=== PATIENT | female | born 1970 | race African-American/Black ===

== ENCOUNTER 2020-02-10 09:15 | Outpatient (REF) | payer OTHER, SELFPAY ==
[2020-02-10 11:41] LABS: Hematocrit 43.4 % (37-47); Hemoglobin 13.4 g/dl (12.0-16.0); Mean Corpuscular HGB Conc 30.9 g/dl (31.0-35.0); Mean Corpuscular Hemoglobin 28.5 pg (27.0-33.0); Mean Corpuscular Volume 92.1 fL (80-98); Mean Platelet Volume 10.9 fL (9.4-12.3); Platelet Count 319 X10*3/uL (160-400); Red Blood Count 4.71 X10*6/uL (4.20-5.50); Red Cell Distribution Width 14.7 % (11.0-16.0); White Blood Count 9.9 X10*3/uL (4.8-10.8)
[2020-02-10 12:00] LABS: Alanine Aminotransferase 15 U/L (0-31); Albumin Level 4.6 g/dL (3.5-5.0); Alkaline Phosphatase 80 U/L (39-117); Anion Gap 13 (12-20); Aspartate Amino Transferase 17 U/L (5-31); Bilirubin Total 0.5 mg/dL (0.0-1.0); Blood Urea Nitrogen 19 mg/dL (9-16); Calcium 9.5 mg/dL (8.4-10.2); Carbon Dioxide 30 mmol/L (22-29); Chloride 101 mmol/L (96-108); Cholesterol 191 mg/dL; Estimated Glomerular Filt Rate > 60; Glucose Fasting 83 mg/dL (60-99); HDL Cholesterol 69 mg/dL; Iron 53 mcg/dL (30-160); LDL Cholesterol Calculated 108 mg/dl; Percent Iron Saturation 14 % (15-50); Potassium 4.3 mmol/l (3.3-5.1); Sodium 140 mmol/L (135-145); Total Iron Binding Capacity 390 mcg/dL (228-428); Total Protein 8.4 g/dL (6.5-8.0); Triglycerides 71 mg/dL; Unsaturated Iron Binding 337 ug/dL
[2020-02-10 13:23] LABS: Folate 16.4 ng/mL (> or = 4.0); Vitamin B12 > 2000 pg/mL (200-900)
[2020-02-10 16:54] LABS: Appearance Urine CLEAR; Color Urine YELLOW; Glucose Urine UA NEG (NEG); Leukocyte Esterase Urine NEG (NEG); Nitrite Urine NEG (NEG); Specific Gravity - Urine 1.025 (1.005-1.025); Urine Blood NEG (NEG); Urine Ketones NEG (NEG); Urine Protein NEG (NEG-TRACE)
[2020-02-10 17:01] LABS: RBC Urine 0-2 /HPF (0); Squamous Epithelial Cell Urine TRACE /LPF; WBC Urine 0-2 /HPF (0-4)
== END 2020-02-10 09:16 | disposition home or self-care (01) ==
LOC: HO.HMGCLDS 09:15
PROVIDERS: PCP Internal Medicine; Visit Provider Internal Medicine
DX: J45.909 Unspecified asthma, uncomplicated (principal); Z00.00 Encounter for general adult medical examination without abnormal findings; E05.00 Thyrotoxicosis with diffuse goiter without thyrotoxic crisis or storm; E89.0 Postprocedural hypothyroidism; E55.9 Vitamin D deficiency, unspecified
CPT/HCPCS: 36415; 80053; 80061; 81001; 82607; 82746; 83540; 84443; 85027

== ENCOUNTER 2020-02-11 10:30 | Outpatient (REF) | payer OTHER, SELFPAY ==
[2020-02-11 15:03] LABS: Free T4 (Free Thyroxine) 1.12 ng/dL (0.71-1.85); Thyroid Stimulating Hormone 2.16 uIU/mL (0.32-4.0); Vitamin D 25-OH Total 37.2 ng/mL (>30)
[2020-02-13 07:13] LABS: Follicle Stimulating Hormone 70.7 mIU/mL; Lutenizing Hormone 38.5 mIU/mL
[2020-02-15 18:48] LABS: Estradiol Ultra Sensitive 5 pg/mL
[2020-02-19 22:28] LABS: Estradiol Free 0.11 pg/mL; Estradiol, Ultrasensitive 6 pg/mL
== END 2020-02-11 10:31 | disposition home or self-care (01) ==
LOC: HO.10HDL 10:30
PROVIDERS: Visit Provider Internal Medicine
DX: E89.0 Postprocedural hypothyroidism (principal); E05.00 Thyrotoxicosis with diffuse goiter without thyrotoxic crisis or storm; E55.9 Vitamin D deficiency, unspecified; E23.2 Diabetes insipidus
CPT/HCPCS: 82306; 82670; 83001; 83002; 84439; 84443

== ENCOUNTER 2020-06-29 11:16 | Outpatient (REF) | payer OTHER, SELFPAY ==
[2020-06-29 14:55] LABS: Free T4 (Free Thyroxine) 1.07 ng/dL (0.71-1.85); Thyroid Stimulating Hormone 1.92 uIU/mL (0.32-4.0)
[2020-06-30 06:07] LABS: Triiodothyronine T3 Total 81 ng/dL (76-181)
[2020-07-04 19:26] LABS: Thyrotropin Receptor Antibody 14.06 IU/L (<=2.00)
[2020-07-07 15:41] LABS: Thyroid Stimulating Immunoglob 297 % baseline (<140)
== END 2020-06-29 11:17 | disposition home or self-care (01) ==
LOC: HO.10HDL 11:16
PROVIDERS: Visit Provider Internal Medicine
DX: E89.0 Postprocedural hypothyroidism (principal)
CPT/HCPCS: 36415; 83520; 84439; 84443; 84445; 84480

== ENCOUNTER → 2020-08-06 11:41 | Outpatient (BNVA) | payer OTHER, SELFPAY | PROVIDERS: PCP Internal Medicine; Visit Provider Internal Medicine ==

== ENCOUNTER 2020-08-13 08:03 | Outpatient (REF) | payer OTHER, SELFPAY ==
[2020-08-13 12:08] LABS: Hematocrit 41.3 % (37-47); Mean Corpuscular HGB Conc 31.5 g/dl (31.0-35.0); Mean Corpuscular Hemoglobin 28.2 pg (27.0-33.0); Mean Corpuscular Volume 89.6 fL (80-98); Mean Platelet Volume 10.7 fL (9.4-12.3); Platelet Count 318 X10*3/uL (160-400); Red Blood Count 4.61 X10*6/uL (4.20-5.50); Red Cell Distribution Width 13.9 % (11.0-16.0); White Blood Count 8.2 X10*3/uL (4.8-10.8)
[2020-08-13 12:31] LABS: Free T4 (Free Thyroxine) 1.08 ng/dL (0.71-1.85)
[2020-08-13 12:38] LABS: Thyroid Stimulating Hormone 1.34 uIU/mL (0.32-4.0); Vitamin D 25-OH Total 41.3 ng/mL (>30)
[2020-08-13 12:47] LABS: Alanine Aminotransferase 19 U/L (0-31); Albumin Level 4.3 g/dL (3.5-5.0); Alkaline Phosphatase 88 U/L (39-117); Anion Gap 12 (12-20); Aspartate Amino Transferase 19 U/L (5-31); Bilirubin Total 0.5 mg/dL (0.0-1.0); Blood Urea Nitrogen 15 mg/dL (9-16); Calcium 9.1 mg/dL (8.4-10.2); Carbon Dioxide 27 mmol/L (22-29); Chloride 105 mmol/L (96-108); Estimated Glomerular Filt Rate > 60; Glucose Fasting 88 mg/dL (60-99); Iron 58 mcg/dL (30-160); Percent Iron Saturation 17 % (15-50); Potassium 4.3 mmol/L (3.3-5.1); Sodium 140 mmol/L (135-145); Total Iron Binding Capacity 340 mcg/dL (228-428); Total Protein 7.9 g/dL (6.5-8.0); Unsaturated Iron Binding 282 ug/dL
[2020-08-14 05:56] LABS: Triiodothyronine T3 Total 87 ng/dL (76-181)
== END 2020-08-13 08:04 | disposition home or self-care (01) ==
LOC: HO.HMGCLDS 08:03
PROVIDERS: PCP Internal Medicine; Visit Provider Internal Medicine
DX: E55.9 Vitamin D deficiency, unspecified (principal); R53.83 Other fatigue; E89.0 Postprocedural hypothyroidism; E05.00 Thyrotoxicosis with diffuse goiter without thyrotoxic crisis or storm
CPT/HCPCS: 36415; 80053; 82306; 83540; 84439; 84443; 84480; 85027

== ENCOUNTER 2021-01-21 08:12 | Outpatient (REF) | payer OTHER, SELFPAY ==
[2021-01-21 11:18] LABS: Hematocrit 40.4 % (37.0-47.0); Hemoglobin 12.8 g/dl (12.0-16.0); Mean Corpuscular HGB Conc 31.7 g/dl (31.0-35.0); Mean Corpuscular Hemoglobin 28.4 pg (27.0-33.0); Mean Corpuscular Volume 89.8 fL (80.0-98.0); Platelet Count 296 X10*3/uL (160-400); Red Cell Distribution Width 14.5 % (11.0-16.0)
[2021-01-21 11:45] LABS: Alanine Aminotransferase 19 U/L (0-31); Albumin Level 4.3 g/dL (3.5-5.0); Alkaline Phosphatase 86 U/L (39-117); Anion Gap 9 (12-20); Aspartate Amino Transferase 22 U/L (5-31); Bilirubin Total 0.5 mg/dL (0.0-1.0); Blood Urea Nitrogen 14 mg/dL (9-16); Calcium 9.3 mg/dL (8.4-10.2); Carbon Dioxide 28 mmol/L (22-29); Chloride 107 mmol/L (96-108); Cholesterol 153 mg/dL; Estimated Glomerular Filt Rate > 60; Glucose Fasting 91 mg/dL (60-99); HDL Cholesterol 50 mg/dL; Iron 63 mcg/dL (30-160); LDL Cholesterol Calculated 90 mg/dl; Percent Iron Saturation 19 % (15-50); Potassium 4.1 mmol/L (3.3-5.1); Sodium 140 mmol/L (135-145); Total Iron Binding Capacity 324 mcg/dL (228-428); Total Protein 7.8 g/dL (6.5-8.0); Triglycerides 65 mg/dL; Unsaturated Iron Binding 261 ug/dL
[2021-01-21 11:58] LABS: TSH reflex Free T4 1.54 uIU/mL (0.32-4.0); Vitamin D 25-OH Total 49.4 ng/mL (>30)
[2021-01-21 11:59] LABS: Free T4 (Free Thyroxine) 1.21 ng/dL (0.71-1.85); Thyroid Stimulating Hormone 1.48 uIU/mL (0.32-4.0)
[2021-01-21 13:50] LABS: Appearance Urine CLEAR; Color Urine YELLOW; Glucose Urine UA NEG (NEG); Leukocyte Esterase Urine TRACE (NEG); Nitrite Urine NEG (NEG); Specific Gravity - Urine 1.025 (1.005-1.025); Urine Blood NEG (NEG); Urine Ketones NEG (NEG); Urine Protein NEG (NEG-TRACE)
[2021-01-21 13:59] LABS: Mucus Urine TRACE /LPF; RBC Urine 0 /HPF (0); Squamous Epithelial Cell Urine 1+ /LPF
== END 2021-01-21 08:13 | disposition home or self-care (01) ==
LOC: HO.HMGCLDS 08:12
PROVIDERS: Internal Medicine; PCP Internal Medicine; Visit Provider Internal Medicine
DX: Z00.00 Encounter for general adult medical examination without abnormal findings (principal); J45.909 Unspecified asthma, uncomplicated; E05.00 Thyrotoxicosis with diffuse goiter without thyrotoxic crisis or storm; E89.0 Postprocedural hypothyroidism
CPT/HCPCS: 36415; 80053; 80061; 81001; 82306; 83540; 84439; 84443; 85027

== ENCOUNTER → 2021-02-10 10:04 | Outpatient (BNVA) | payer OTHER, SELFPAY | PROVIDERS: PCP Internal Medicine; Visit Provider Internal Medicine ==

== ENCOUNTER 2021-10-05 08:13 | Outpatient (REF) | payer OTHER, SELFPAY ==
[2021-10-05 11:35] LABS: MANUAL DIFF FLAG NO
[2021-10-05 11:44] LABS: Basophils Absolute Auto 0.1 X10*3/uL (0.0-0.2); Basophils Percent Auto 0.6 % (0-2); Eosinophils Absolute Auto 0.1 X10*3/uL (0.0-0.4); Eosinophils Percent Auto 1.6 % (0-4); Hemoglobin 12.8 g/dl (12.0-16.0); Imm Gran Abs Auto 0.02 X10*3/uL (0.00-0.03); Imm Gran Pct Auto 0.2 % (0.0-0.4); Lymphocytes Absolute Auto 2.3 X10*3/uL (1.2-4.9); Lymphocytes Percent Auto 26.2 % (20-40); Mean Corpuscular Hemoglobin 28.3 pg (27.0-33.0); Mean Corpuscular Volume 88.5 fL (80.0-98.0); Mean Platelet Volume 10.7 fL (9.4-12.3); Monocytes Absolute Auto 0.6 X10*3/uL (0.1-1.2); Monocytes Percent Auto 6.5 % (2-11); Neutrophils Absolute Auto 5.7 x10*3/uL (2.0-8.3); Neutrophils Percent Auto 64.9 % (45-73); Platelet Count 282 X10*3/uL (160-400); Red Blood Count 4.52 X10*6/uL (4.20-5.50); White Blood Count 8.8 X10*3/uL (4.8-10.8)
[2021-10-05 12:15] LABS: TSH reflex Free T4 2.89 uIU/mL (0.32-4.0)
[2021-10-05 12:18] LABS: Alanine Aminotransferase 20 U/L (0-31); Albumin Level 4.4 g/dL (3.5-5.0); Alkaline Phosphatase 89 U/L (39-117); Anion Gap 10 (12-20); Aspartate Amino Transferase 20 U/L (5-31); Bilirubin Total 0.3 mg/dL (0.0-1.0); Blood Urea Nitrogen 13 mg/dL (9-16); Calcium 9.4 mg/dL (8.4-10.2); Carbon Dioxide 27 mmol/L (22-29); Chloride 109 mmol/L (96-108); Estimated Glomerular Filt Rate > 60; Glucose Fasting 104 mg/dL (60-99); Potassium 4.1 mmol/L (3.3-5.1); Sodium 142 mmol/L (135-145)
== END 2021-10-05 08:14 | disposition home or self-care (01) ==
LOC: HO.HMGCLDS 08:13
PROVIDERS: Visit Provider Internal Medicine
DX: E03.9 Hypothyroidism, unspecified (principal); Z78.0 Asymptomatic menopausal state
CPT/HCPCS: 36415; 80053; 84443; 85025

== ENCOUNTER 2021-10-06 09:34 | Outpatient (REF) | payer OTHER, SELFPAY ==
[2021-10-06 12:06] LABS: Appearance Urine CLOUDY; Color Urine YELLOW; Glucose Urine UA NEG (NEG); Leukocyte Esterase Urine 3+ (NEG); Nitrite Urine NEG (NEG); PH 6.5 (5.0-8.0); Specific Gravity - Urine 1.025 (1.005-1.025); Urine Blood NEG (NEG); Urine Ketones NEG (NEG); Urine Protein NEG (NEG-TRACE)
[2021-10-06 12:17] LABS: RBC Urine 0 /HPF (0)
[2021-10-06 12:18] LABS: Renal Epithelial Cells Urine 1+ /LPF; Squamous Epithelial Cell Urine TRACE /LPF
[2021-10-06 12:19] LABS: Amorphous Sediment Urine 3+ /LPF
== END 2021-10-06 09:35 | disposition home or self-care (01) ==
LOC: HO.HMGCLNP 09:34
PROVIDERS: Visit Provider Internal Medicine
DX: E03.9 Hypothyroidism, unspecified (principal); Z78.0 Asymptomatic menopausal state
CPT/HCPCS: 81001

== ENCOUNTER 2021-10-13 09:20 | Outpatient (REF) | payer OTHER, SELFPAY ==
[2021-10-13 11:28] LABS: Appearance Urine CLEAR; Color Urine YELLOW; Glucose Urine UA NEG (NEG); Leukocyte Esterase Urine 1+ (NEG); Nitrite Urine NEG (NEG); PH 6.5 (5.0-8.0); Specific Gravity - Urine 1.015 (1.005-1.025); UACC Culture Trigger YES; Urine Blood NEG (NEG); Urine Ketones NEG (NEG); Urine Protein NEG (NEG-TRACE)
[2021-10-13 11:42] LABS: Bacteria Urine TRACE /LPF; RBC Urine 0-2 /HPF (0)
== END 2021-10-13 09:21 | disposition home or self-care (01) ==
LOC: HO.HMGCLDS 09:20
PROVIDERS: PCP Internal Medicine; Visit Provider Internal Medicine
DX: Z00.00 Encounter for general adult medical examination without abnormal findings (principal); E03.9 Hypothyroidism, unspecified; J45.909 Unspecified asthma, uncomplicated; R82.90 Unspecified abnormal findings in urine
CPT/HCPCS: 81001; 87086

== ENCOUNTER 2022-01-26 08:03 | Outpatient (REF) | payer OTHER, SELFPAY ==
[2022-01-26 11:18] LABS: MANUAL DIFF FLAG NO
[2022-01-26 11:36] LABS: Basophils Percent Auto 0.5 % (0-2); Eosinophils Absolute Auto 0.2 X10*3/uL (0.0-0.4); Eosinophils Percent Auto 1.8 % (0-4); Hematocrit 41.1 % (37.0-47.0); Hemoglobin 12.9 g/dl (12.0-16.0); Imm Gran Abs Auto 0.01 X10*3/uL (0.00-0.03); Imm Gran Pct Auto 0.1 % (0.0-0.4); Lymphocytes Absolute Auto 2.6 X10*3/uL (1.2-4.9); Lymphocytes Percent Auto 30.1 % (20-40); Mean Corpuscular HGB Conc 31.4 g/dl (31.0-35.0); Mean Corpuscular Hemoglobin 27.6 pg (27.0-33.0); Mean Platelet Volume 10.8 fL (9.4-12.3); Monocytes Absolute Auto 0.5 X10*3/uL (0.1-1.2); Monocytes Percent Auto 5.9 % (2-11); Neutrophils Absolute Auto 5.3 x10*3/uL (2.0-8.3); Neutrophils Percent Auto 61.6 % (45-73); Platelet Count 315 X10*3/uL (160-400); Red Blood Count 4.67 X10*6/uL (4.20-5.50); Red Cell Distribution Width 14.2 % (11.0-16.0); White Blood Count 8.5 X10*3/uL (4.8-10.8)
[2022-01-26 12:26] LABS: Alanine Aminotransferase 19 U/L (0-31); Albumin Level 4.3 g/dL (3.5-5.0); Alkaline Phosphatase 91 U/L (39-117); Anion Gap 12 (12-20); Aspartate Amino Transferase 20 U/L (5-31); Bilirubin Total 0.4 mg/dL (0.0-1.0); Blood Urea Nitrogen 16 mg/dL (9-16); Calcium 9.6 mg/dL (8.4-10.2); Carbon Dioxide 26 mmol/L (22-29); Chloride 109 mmol/L (96-108); Cholesterol 156 mg/dL; Estimated Glomerular Filt Rate > 60; Glucose Fasting 87 mg/dL (60-99); HDL Cholesterol 50 mg/dL; LDL Cholesterol Calculated 91 mg/dl; Potassium 4.3 mmol/L (3.3-5.1); Sodium 143 mmol/L (135-145); TSH reflex Free T4 3.06 uIU/mL (0.32-4.0); Total Protein 7.9 g/dL (6.5-8.0); Triglycerides 78 mg/dL; Vitamin D 25-OH Total 52.8 ng/mL (>30)
[2022-01-26 12:27] LABS: Free T4 (Free Thyroxine) 1.12 ng/dL (0.71-1.85); Thyroid Stimulating Hormone 3.07 uIU/mL (0.32-4.0); Vitamin D 25-OH Total 54.2 ng/mL (>30)
== END 2022-01-26 08:04 | disposition home or self-care (01) ==
LOC: HO.HMGCLDS 08:03
PROVIDERS: Absent Provider Internal Medicine; PCP Internal Medicine; Visit Provider Internal Medicine
DX: Z00.00 Encounter for general adult medical examination without abnormal findings (principal); E03.9 Hypothyroidism, unspecified; E05.00 Thyrotoxicosis with diffuse goiter without thyrotoxic crisis or storm; E55.9 Vitamin D deficiency, unspecified
CPT/HCPCS: 36415; 80053; 80061; 82306; 84439; 84443; 85025

== ENCOUNTER 2022-10-19 09:02 | Outpatient (AMB) | payer OTHER, SELFPAY ==
--- NOTE | 2022-10-19 09:02 | MHC.OFFVIS ---
Intake Intake Visit Reasons: F/U Postablative hypothyroidism Intake Note: Postablative Hypothyroidism follow up visit. Compliance Field Technician Required: No Allergies tiotropium [Spiriva with HandiHaler] Allergy (Unknown, Verified 10/19/22 11:42) conjuctivits seasonal allergies Allergy (Unknown, Uncoded 10/19/22 11:42) Unknown Medication List - Last Reconciled 10/19/22 by Mirna Valdez, albuterol sulfate 90 mcg/actuation 1 puff inhalation DAILY PRN cetirizine (Zyrtec) 10 mg PO DAILY PRN cholecalciferol (vitamin D3) 50 mcg PO DAILY 30 days fluticasone furoate-vilanterol 100-25 mcg/dose 1 inh inhalation DAILY levothyroxine 137 mcg PO QAM multivitamin with iron PO DAILY rhubarb root extract (Estroven Complete Menopause Relief) mg PO HPI HPI Comments History of Present Illness Details 50 YO F with no significant PMHx who is seen in F/U for Hyperthyroidism. Patient had routine lab work drawn by PCP in August 2018 which revealed suppressed TSH. She subsequently had repeat labs 11/25/18 which revealed TSH < 0.01 with FT4 1.94 and FT3 9.1. She was then referred to Endocrinology. We repeated labs 12/06/18 which revealed suppressed TSH of <0.01 with FT4 WNL but TT3 elevated to 325. TSI and TRAB antibodies were positive. She had a thyroid uptake and scan which revealed diffusely increased uptake of 55.8%. Thyroid US revealed no nodules. She refused treatment with thionamine therapy and instead opted for I131 ablation. She received treatment with 11.75 I131 02/15/2019. She did develop hypothyroidism shortly after treatment and was started on Levothyroxine 50 mcg PO daily but developed hypothyroidism with TSH >30. Her dose has been steadily increased to her current dose of 137 mcg PO daily and TSH is now WNL. She reports feeling well and denies any symptoms of hypothyroidism. Thyroid Uptake and Scan: 12/06/18 FINDINGS: The uptake is 19.8% at 4 hours and 55.8% at 24 hours. The radioiodine uptake is moderately elevated. The radiopertechnetate thyroid scintigram demonstrates the thyroid gland to be normal in size, shape, and position. There is homogeneous distribution of activity within the the gland with no focal abnormalities noted. A very faint pyramidal lobe is visualized attaching to the junction of the mid left lobe and isthmus. The trapping function is markedly increased with little background or salivary gland activity visible. A single anterior radioiodine image obtained at the time of the 24-hour uptake measurement is similar to the radio pertechnetate image. IMPRESSION: Normal-sized thyroid gland with very homogeneous activity and markedly increased trapping function. No nodules are visualized. The radioiodine uptake is moderately elevated. In the clinical setting of hyperthyroidism, these findings are consistent with Graves' disease. Thyroid US: 11/29/18 FINDINGS: SIZE: Measurements of the thyroid lobes and nodules are given in sagittal, anteroposterior and transverse dimensions respectively. Right Thyroid Lobe: 3.2 x 2.1 x 1.5 cm, volume 5.3 mL. Parenchyma: The gland echotexture is heterogeneous. Thyroid vascularity is increased. Left Thyroid Lobe: 4.0 x 1.6 x 1.8 cm, volume 6.1 mL. Parenchyma: The gland echotexture is heterogeneous. Thyroid vascularity is increased. Isthmus: 0.4 cm in maximum AP dimension. RIGHT THYROID LOBE: No nodules. ISTHMUS: No nodules. LEFT THYROID LOBE: No nodules. NODES: No lymphadenopathy is seen in the tissue surrounding the thyroid gland. Labs: Laboratory Tests 01/21/21 01/21/21 08:21 08:21 25-OH Vitamin D To jose 49.4 TSH 1.48 Free T4 1.21 PFSH Medical History Annual physical exam Asthma Fatigue Graves disease Graves' eye disease Hypothyroidism Normal Pap smear Postablative hypothyroidism Vitamin D deficiency Surgical History H/O colonoscopy H/O wisdom tooth extraction History of eyelid surgery Family History Father Liver cancer Mother Dementia Social History Housing: House Alcohol intake: current Alcohol intake frequency: a few times a month Patient Tobacco Use Status: Never used Tobacco e-Cigarette/Vaping Use: Never Used Current occupational status: employed Cognitive needs: No Hearing needs: No Vision needs: Yes Assessment & Plan Assessment & Plan (1) Graves disease: Code(s): E05.00 - Thyrotoxicosis with diffuse goiter without thyrotoxic crisis or storm Plan: Patient with a history of Grave's disease who underwent I131 ablation with 11.75 millicurries of I131 02/16/2020 who has developed postablative hypothyroidism. She is now well controlled on Levothyroxine 137 mcg PO daily. Will repeat TSH in now and I will call with abnormalities. She will then F/U with her PCP for further management. All of her questions were answered. She is in agreement with this plan of care. I spent 20 minutes in reviewing the record, seeing the patient and documenting in the medical record, including 5 minutes on the phone with the Patient. (2) Postablative hypothyroidism: Code(s): E89.0 - Postprocedural hypothyroidism Plan: Patient with postablative hypothyroidism after I131 ablation for Grave's disease. TSH is at goal on Levothyroxine 137 mcg PO daily. Will repeat labs now and reassess. (3) Vitamin D deficiency: Code(s): E55.9 - Vitamin D deficiency, unspecified Plan: Remains on Vitamin D 2000 IU daily. Orders: Orders Free T4 (Free Thyroxine) Today E03.9 - Hypothyroidism, unspecified Thyroid Stimulating Hormone Today E03.9 - Hypothyroidism, unspecified Telehealth Telehealth Location of provider rendering services: practice address Location of patient: address on file Patient Identification confirmed using: Name, : Yes Telehealth method: voice only Patient verbally consented to treatment: Yes Patient verbally consented to billing insurance company: Yes Patient informed of any privacy concerns related to visit: Yes Coding Level of Care Code Tele Est Pt Level 3 (66264) Diagnoses Graves disease E05.00 Postablative hypothyroidism E89.0 Vitamin D deficiency E55.9
== END 2022-10-19 14:38 | disposition home or self-care (01) ==
LOC: HO.ENCR 09:02
PROVIDERS: PCP Internal Medicine; Visit Provider Internal Medicine
DX: E05.00 Thyrotoxicosis with diffuse goiter without thyrotoxic crisis or storm (principal); E89.0 Postprocedural hypothyroidism; E55.9 Vitamin D deficiency, unspecified
CPT/HCPCS: 99213

== ENCOUNTER → 2022-10-19 09:02 | Outpatient (BNVA) | payer OTHER, SELFPAY | PROVIDERS: PCP Internal Medicine; Visit Provider Internal Medicine ==

== ENCOUNTER 2022-10-20 09:56 | Outpatient (REF) | payer OTHER, SELFPAY ==
[2022-10-20 13:38] LABS: Free T4 (Free Thyroxine) 1.14 ng/dL (0.71-1.85); Thyroid Stimulating Hormone 1.01 uIU/mL (0.32-4.0)
== END 2022-10-20 09:57 | disposition home or self-care (01) ==
LOC: HO.HMGCLDS 09:56
PROVIDERS: PCP Internal Medicine; Visit Provider Internal Medicine
DX: E03.9 Hypothyroidism, unspecified (principal)
CPT/HCPCS: 36415; 84439; 84443

== ENCOUNTER 2023-01-30 08:11 | Outpatient (REF) | payer OTHER, SELFPAY ==
[2023-01-30 11:31] LABS: MANUAL DIFF FLAG NO
[2023-01-30 11:39] LABS: Basophils Absolute Auto 0.1 X10*3/uL (0.0-0.2); Basophils Percent Auto 1.1 % (0-2); Eosinophils Absolute Auto 0.1 X10*3/uL (0.0-0.4); Eosinophils Percent Auto 0.8 % (0-4); Hematocrit 42.6 % (37.0-47.0); Hemoglobin 13.2 g/dl (12.0-16.0); Imm Gran Abs Auto 0.01 X10*3/uL (0.00-0.03); Imm Gran Pct Auto 0.1 % (0.0-0.4); Lymphocytes Percent Auto 35.9 % (20-40); Mean Corpuscular Hemoglobin 27.7 pg (27.0-33.0); Mean Corpuscular Volume 89.5 fL (80.0-98.0); Mean Platelet Volume 10.9 fL (9.4-12.3); Monocytes Absolute Auto 0.5 X10*3/uL (0.1-1.2); Monocytes Percent Auto 6.4 % (2-11); Neutrophils Absolute Auto 4.6 x10*3/uL (2.0-8.3); Neutrophils Percent Auto 55.7 % (45-73); Platelet Count 309 X10*3/uL (160-400); Red Blood Count 4.76 X10*6/uL (4.20-5.50); Red Cell Distribution Width 14.6 % (11.0-16.0); White Blood Count 8.3 X10*3/uL (4.8-10.8)
[2023-01-30 13:00] LABS: Alanine Aminotransferase 26 U/L (0-31); Albumin Level 4.3 g/dL (3.5-5.0); Alkaline Phosphatase 89 U/L (39-117); Anion Gap 13 (12-20); Aspartate Amino Transferase 26 U/L (5-31); Bilirubin Total 0.3 mg/dL (0.0-1.0); Blood Urea Nitrogen 13 mg/dL (9-16); Calcium 9.6 mg/dL (8.4-10.2); Carbon Dioxide 28 mmol/L (22-29); Chloride 105 mmol/L (96-108); Cholesterol 176 mg/dL (<200); Estimated Glomerular Filt Rate > 60; Glucose Fasting 72 mg/dL (60-99); HDL Cholesterol 56 mg/dL (>40); LDL Cholesterol Calculated 104 mg/dL (<100); Potassium 3.8 mmol/L (3.3-5.1); Sodium 142 mmol/L (135-145); Total Protein 8.4 g/dL (6.5-8.0); Triglycerides 80 mg/dL (<150)
[2023-01-30 13:18] LABS: TSH reflex Free T4 2.02 uIU/mL (0.32-4.0); Vitamin D 25-OH Total 54.1 ng/mL (>30)
== END 2023-01-30 08:12 | disposition home or self-care (01) ==
LOC: HO.HMGCLDS 08:11
PROVIDERS: PCP Internal Medicine; Visit Provider Internal Medicine
DX: Z00.00 Encounter for general adult medical examination without abnormal findings (principal); J45.909 Unspecified asthma, uncomplicated; E03.9 Hypothyroidism, unspecified; E55.9 Vitamin D deficiency, unspecified; R53.83 Other fatigue
CPT/HCPCS: 36415; 80053; 80061; 82306; 84443; 85025

== ENCOUNTER 2023-02-09 11:44 | Outpatient (AMB) | payer OTHER, SELFPAY ==
[2023-02-09 11:52] VITALS: BP 118/76; PULSE 82; BMI 31.6
--- NOTE | 2023-02-09 11:52 | A.OFFPC_ITS ---
Vital Signs 02/09/23 11:52 Height 5 ft 10 in Weight 220 lb BMI 31.6 BP 118/76 Blood Pressure Location Lt brachial Position Sitting Pulse 82 Pulse Source Pulse Oximeter Intake Visit Reasons: Pe resched Intake Note: Pt is here today for PE. 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 Allergies tiotropium [Spiriva with HandiHaler] Allergy (Unknown, Verified 02/09/23 12:00) conjuctivits seasonal allergies Allergy (Unknown, Uncoded 02/09/23 12:00) Unknown Medication List - Last Reconciled 02/09/23 by Emelia Singer MD albuterol sulfate 90 mcg/actuation 1 puff inhalation DAILY PRN cetirizine (Zyrtec) 10 mg PO DAILY PRN cholecalciferol (vitamin D3) 50 mcg PO DAILY 30 days fluticasone furoate-vilanterol 100-25 mcg/dose 1 inh inhalation DAILY levothyroxine 137 mcg PO QAM multivitamin with iron PO DAILY rhubarb root extract (Estroven Complete Menopause Relief) mg PO Tobacco use date assessed: 02/09/23 Dental Screening Dental Screen Date: 02/09/23 Did you have a dental visit in the last 12 months?: Yes Did you have a dental problem in the last 6 months where you did not have access to dental care?: No Was dental information given to patient?: Patient has dentist HPI Pe resched HPI Details Pt presents for PE. [facility] Medical History (Updated 02/09/23 @ 12:20 by Emelia Singer MD) Graves' eye disease Fatigue Vitamin D deficiency Postablative hypothyroidism Normal Pap smear Annual physical exam Hypothyroidism Graves disease Asthma Surgical History History of eyelid surgery H/O wisdom tooth extraction H/O colonoscopy Family History Father Liver cancer Mother Dementia Social History Housing: House Alcohol intake: current Alcohol intake frequency: a few times a month Patient Tobacco Use Status: Never used Tobacco e-Cigarette/Vaping Use: Never Used Current occupational status: employed Cognitive needs: No Hearing needs: No Vision needs: Yes Questionnaire PHQ-9 Over the last 2 weeks, how often have you been bothered by any of the following problems? 1. Little interest or pleasure in doing things: not at all 2. Feeling down, depressed, or hopeless: not at all 3. Trouble falling or staying asleep, or sleeping too much: not at all 4. Feeling tired or having little energy: not at all 5. Poor appetite or overeating: not at all 6. Feeling bad about yourself - or that you are a failure or have let yourself or your family down: not at all 7. Trouble concentrating on things, such as reading the newspaper or watching television: not at all 8. Moving or speaking so slowly that other people could have noticed. Or the opposite - being so fidgety or restless that you have been moving around a lot more than usual: not at all 9. Thoughts that you would be better off or of hurting yourself in some way: not at all Total score: 0 Depression Screening Interpretation: Negative Depression Screening Done: Yes Source: Developed by Drs. Chris Chisholm, Katalina Mayo, Jeet Beltran and colleagues, with an educational danny from [employer]. Thrive Questionnaire Date Thrive assessed: 02/09/23 I am a: Patient What is your living situation today?: I have a steady place to live Within the past 12 months, did the food you bought not last and you didn't have the money to get more?: Never true Within the past 12 months, did you worry whether your food would run out before you got money to buy more?: Never true Do you have trouble paying for medicines?: No Do you have trouble getting transportation to medical appointments?: No Do you have trouble paying your heating and electricity bill?: No Do you have trouble taking care of your child, family member or friend?: No Do you have trouble with day-to-day activities such as bathing, preparing meals, shopping, managing finances, etc.?: No Are you currently unemployed and looking for a job?: No Are you interested in more education?: No Please select the resources that you would like help with: None AUDIT C Alcohol Use Questionnaire (AUDIT-C) 1. How often do you have a drink containing alcohol?: Monthly or less 2. How many drinks containing alcohol do you have on a typical day when you are drinking?: 1 or 2 3. How often do you have six or more drinks on one occasion?: Never Total Score: 1 GILMA-7 AMB Questionnaire GILMA-7 Date GILMA - 7 assessed: 02/09/23 Feeling nervous, anxious, or on edge: 0 = Not at all Not being able to stop or control worryin = Not at all Worrying too much about different things: 0 = Not at all Trouble relaxin = Not at all Being so restless that it is hard to sit still: 0 = Not at all Becoming easily annoyed or irritable: 0 = Not at all Feeling afraid as if something awful might happen: 0 = Not at all Total GILMA-7 score (0-4 normal; 5-9 mild; 10-14 moderate; 15-21 severe): 0 Source: Developed by Drs. Chris Chisholm, Katalina Mayo, Jeet Beltran and colleagues, with an educational danny from [employer]. Review of Systems Const All systems reviewed & are unremarkable except as noted in HPI and below Reports no additional complaints Eyes Reports no additional complaints ENT Reports no additional complaints Card Reports no additional complaints Resp Reports no additional complaints GI Reports no additional complaints Reports no additional complaints Physical exam (Primary Care) Vital Signs: Last Vital Signs Pulse 82 02/09/23 11:52 BP 118/76 02/09/23 11:52 BMI result Body Mass Index 31.6 Tobacco/Smoking Status: Tobacco use Status Tobacco use date assessed 02/09/23 02/09/23 12:03 Patient Tobacco Use Status Never used Tobacco 02/09/23 12:03 e-Cigarette/Vaping Use Never Used 02/09/23 11:53 Depression Screening Interpretation: Negative Thrive Assessment: Date of Thrive Assessment Date Thrive assessed 01/21/22 02/09/23 11:53 Const General: no acute distress HENMT Head: Yes normal to inspection Ears: hearing grossly normal bilaterally Face and sinus: Yes normal facial exam Mouth: Normal oral and palatal mucosa present Throat: Yes posterior oropharynx normal Eyes General: appearance normal, both eyes and all related structures Neck Neck: Yes no lymphadenopathy and Yes supple Resp Effort & Inspection: normal respiratory effort Auscultation: clear to auscultation bilaterally Cardio Rhythm: regular rhythm Heart sounds: S1 normal heart sound present and S2 normal heart sound present GI Inspection: Yes normal to inspection Palpation (GI): Soft to palpation Percussion: Yes normal to percussion Auscultation: normal bowel sounds Assessment and Plan Assessment & Plan (1) Normal Pap smear: 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 Vazquez, controlled on Breo Code(s): J45.909 - Unspecified asthma, uncomplicated Plan: cont Breo (5) Hypothyroidism: Code(s): E03.9 - Hypothyroidism, unspecified Plan: cont Levothyroxine, PE in 1 year Orders: Orders Comprehensive [place]. Panel Fast 365 Days E03.9 - Hypothyroidism, unspecified, E55.9 - Vitamin D deficiency, unspecified, J45.909 - Unspecified asthma, uncomplicated, Z00.00 - Encounter for general adult medical examination without abnormal findings Complete Blood Count Auto Diff 365 Days E03.9 - Hypothyroidism, unspecified, E55.9 - Vitamin D deficiency, unspecified, J45.909 - Unspecified asthma, uncomplicated, Z00.00 - Encounter for general adult medical examination without abnormal findings Lipid Panel 365 Days E03.9 - Hypothyroidism, unspecified, E55.9 - Vitamin D deficiency, unspecified, J45.909 - Unspecified asthma, uncomplicated, Z00.00 - Encounter for general adult medical examination without abnormal findings Vitamin D 25-OH Total 365 Days E03.9 - Hypothyroidism, unspecified, E55.9 - Vitamin D deficiency, unspecified, J45.909 - Unspecified asthma, uncomplicated, Z00.00 - Encounter for general adult medical examination without abnormal findings TSH reflex Free T4 365 Days E03.9 - Hypothyroidism, unspecified, E55.9 - Vitamin D deficiency, unspecified, J45.909 - Unspecified asthma, uncomplicated, Z00.00 - Encounter for general adult medical examination without abnormal findings Referrals Gastroenterology Referral Z00.00 - Encounter for general adult medical examination without abnormal findings Coding Level of Care Code Est Pt Prev Care 40-64y(20213) Diagnoses Normal Pap smear Z12.4 Annual physical exam Z00.00 Hx of screening mammography Z92.89 Asthma J45.909 Hypothyroidism E03.9
== END 2023-02-09 12:32 | disposition home or self-care (01) ==
PROVIDERS: PCP Internal Medicine; Visit Provider Internal Medicine
DX: Z12.4 Encounter for screening for malignant neoplasm of cervix (principal); Z00.00 Encounter for general adult medical examination without abnormal findings; Z92.89 Personal history of other medical treatment; J45.909 Unspecified asthma, uncomplicated; E03.9 Hypothyroidism, unspecified
CPT/HCPCS: 99396

== ENCOUNTER 2023-03-08 11:19 | Outpatient (REF) | payer OTHER, SELFPAY ==
[2023-03-08 13:28] LABS: Appearance Urine Turbid; Color Urine Yellow; Glucose Urine UA Negative (Negative); Leukocyte Esterase Urine Moderate (2+) (Negative); Nitrite Urine Negative (Negative); PH 5.5 (5.0-9.0); Specific Gravity - Urine 1.025 (1.005-1.025); UMIC TRIGGER UACC YES; Urine Blood Negative (Negative); Urine Ketones Trace mg/dL (Negative); Urine Protein Negative (Neg-Trace)
[2023-03-08 13:32] LABS: Bacteria Urine None Seen (None Seen); Hyaline Casts Urine 0-2 /LPF (0-2); RBC Urine 0-2 /HPF (0-2); Squamous Epithelial Cell Urine 0-2 /HPF (0-2); UACC Culture Trigger YES
== END 2023-03-08 11:20 | disposition home or self-care (01) ==
LOC: HO.HMGCLDS 11:19
PROVIDERS: PCP Internal Medicine; Visit Provider Internal Medicine
DX: R32 Unspecified urinary incontinence (principal)
CPT/HCPCS: 81001; 87086

== ENCOUNTER 2023-04-19 12:16 | Outpatient (AMB) | payer OTHER, SELFPAY ==
--- NOTE | 2023-04-19 12:25 | MHC.OFFVIS ---
Intake Vital Signs 04/19/23 12:33 Height 5 ft 10 in Weight 215 lb 9.793 oz BMI 30.9 BP 110/73 Blood Pressure Location Lt brachial Position Sitting Pulse 97 Intake Visit Reasons: Colonoscopy Consultation Intake Note: Patient is seen in office for colonoscopy consult. Pt c/o: had a colonoscopy done in 2018 and is here to schedule a repeat Patient Care Manager Required: No Accompanied by: Self / Same As Patient Allergies tiotropium [Spiriva with HandiHaler] Allergy (Unknown, Verified 04/19/23 12:35) conjuctivits seasonal allergies Allergy (Unknown, Uncoded 04/19/23 12:35) Unknown HPI HPI Comments History of Present Illness Details A 52-year-old female referred for screening colonoscopy- 02/2018- colonoscopy- Dr. العراقي-no polyps She has no GI complaints Normal bowel pattern, appetite is good No known family history of GI cancers No nausea, vomiting, hematemesis, hematochezia, abdominal pain, fever or chills She expresses to hold off if there is no indication for colonoscopy at this time [facility] Medical History Graves' eye disease Fatigue Vitamin D deficiency Postablative hypothyroidism Normal Pap smear Annual physical exam Hypothyroidism Graves disease Asthma Surgical History (Updated 04/19/23 @ 15:06 by Ann Damon PA-C) History of eyelid surgery H/O wisdom tooth extraction H/O colonoscopy Family History Father Liver cancer Mother Dementia Social History Housing: House Alcohol intake: current Alcohol intake frequency: a few times a month Patient Tobacco Use Status: Never used Tobacco e-Cigarette/Vaping Use: Never Used Current occupational status: employed Cognitive needs: No Hearing needs: No Vision needs: Yes Review of Systems Const Details: Systems reviewed and are negative Physical Exam Vital Signs: Last Vital Signs Pulse 97 04/19/23 12:33 BP 110/73 04/19/23 12:33 BMI result Body Mass Index 30.9 Const General: cooperative, healthy appearing, comfortable and no acute distress Orientation/consciousness: patient oriented x3 Limitations: no limitations Eyes Sclerae: sclerae normal Resp Effort & Inspection: normal respiratory effort and able to speak in complete sentences Auscultation: clear to auscultation bilaterally, no rales, no rhonchi and no wheezes Cardio Rate: regular rate Rhythm: regular rhythm Heart sounds: S1 normal heart sound present and S2 normal heart sound present GI Palpation (GI): Soft to palpation and nontender Auscultation: normal bowel sounds Skin General skin exam: no rashes or lesions noted Neuro General: patient oriented x3 Extrem General: Yes full ROM Psych Appearance: grossly normal and well kempt Mental Status: mental status grossly normal Speech and movement: Normal speech and movement present and Clear speech present Affect: normal affect Attitude: cooperative Thought process: Normal thought process present Thought content: Normal thought content present Insight: Good insight present (Psych) Judgement: Good judgement present (Psych) Assessment & Plan Assessment & Plan (1) H/O colonoscopy: Comment: 02/2018-normal recommended 10 year follow-up Has no GI concerns Reviewed labs no anemia Code(s): Z98.890 - Other specified postprocedural states Plan: Hold off on colonoscopy for now-will send note to PCP to ensure not missing anything Plan Colonoscopy 5 years if asymptomatic Patient Instructions: Pleasant 52-year-old female referred for screening colonoscopy. However she had colonoscopy just 5 years ago that was normal recommending 10 year follow-up. Will send note to PCP if no indication will hold off for 5 years unless otherwise indicated. She is agreeable with the plan Encouraged her to call with any questions or concerns or any symptoms Appreciate the opportunity assist in the care the patient Coding Level of Care Code New Pt Level 3 (39766) Diagnoses H/O colonoscopy Z98.890 Time Spent (min) 20
[2023-04-19 12:33] VITALS: BP 110/73; PULSE 97; BMI 30.9
== END 2023-04-19 14:08 | disposition home or self-care (01) ==
PROVIDERS: PCP Internal Medicine; Visit Provider Physician Assistant
DX: Z98.890 Other specified postprocedural states (principal)
CPT/HCPCS: 99203

== ENCOUNTER → 2023-04-19 12:16 | Outpatient (BNVA) | payer OTHER, SELFPAY | PROVIDERS: PCP Internal Medicine; Visit Provider Physician Assistant ==

== ENCOUNTER 2024-03-07 08:23 | Outpatient (REF) | payer OTHER, SELFPAY ==
[2024-03-07 10:04] LABS: MANUAL DIFF FLAG NO
[2024-03-07 10:09] LABS: Basophils Absolute Auto 0.1 X10*3/uL (0.0-0.2); Eosinophils Absolute Auto 0.2 X10*3/uL (0.0-0.4); Eosinophils Percent Auto 2.1 % (0-4); Hematocrit 40.1 % (37.0-47.0); Hemoglobin 12.8 g/dl (12.0-16.0); Imm Gran Abs Auto 0.01 X10*3/uL (0.00-0.03); Imm Gran Pct Auto 0.1 % (0.0-0.4); Lymphocytes Absolute Auto 2.4 X10*3/uL (1.2-4.9); Mean Corpuscular HGB Conc 31.9 g/dl (31.0-35.0); Mean Corpuscular Hemoglobin 28.5 pg (27.0-33.0); Mean Corpuscular Volume 89.3 fL (80.0-98.0); Mean Platelet Volume 10.3 fL (9.4-12.3); Monocytes Absolute Auto 0.4 X10*3/uL (0.1-1.2); Monocytes Percent Auto 5.4 % (2-11); Neutrophils Absolute Auto 4.2 x10*3/uL (2.0-8.3); Neutrophils Percent Auto 58.4 % (45-73); Platelet Count 329 X10*3/uL (160-400); Red Blood Count 4.49 X10*6/uL (4.20-5.50); Red Cell Distribution Width 14.2 % (11.0-16.0); White Blood Count 7.2 X10*3/uL (4.8-10.8)
[2024-03-07 10:21] LABS: Alanine Aminotransferase 19 U/L (0-31); Albumin Level 4.2 g/dL (3.5-5.0); Alkaline Phosphatase 76 U/L (39-117); Anion Gap 8 (12-20); Aspartate Amino Transferase 27 U/L (5-31); Bilirubin Total 0.3 mg/dL (0.0-1.0); Blood Urea Nitrogen 13 mg/dL (9-16); Calcium 9.3 mg/dL (8.4-10.2); Carbon Dioxide 28 mmol/L (22-29); Chloride 109 mmol/L (96-108); Cholesterol 160 mg/dL (<200); Estimated Glomerular Filt Rate > 60; Glucose Fasting 92 mg/dL (60-99); HDL Cholesterol 49 mg/dL (>40); LDL Cholesterol Calculated 95 mg/dL (<100); Potassium 3.9 mmol/L (3.3-5.1); Sodium 141 mmol/L (135-145); Total Protein 8.1 g/dL (6.5-8.0); Triglycerides 82 mg/dL (<150)
[2024-03-07 11:26] LABS: Vitamin D 25-OH Total 64.8 ng/mL (>30)
== END 2024-03-07 08:24 | disposition home or self-care (01) ==
LOC: HO.HMGCLDS 08:23
PROVIDERS: PCP Internal Medicine; Visit Provider Internal Medicine
DX: Z00.00 Encounter for general adult medical examination without abnormal findings (principal); J45.909 Unspecified asthma, uncomplicated; E03.9 Hypothyroidism, unspecified; E55.9 Vitamin D deficiency, unspecified
CPT/HCPCS: 36415; 80053; 80061; 82306; 84443; 85025

== ENCOUNTER 2024-03-14 12:36 | Outpatient (AMB) | payer OTHER, SELFPAY ==
[2024-03-14 13:16] VITALS: BP 120/76; PULSE 86; O2SAT 99; BMI 29.4
--- NOTE | 2024-03-14 13:16 | MHC.PC.OV ---
Vital Signs 03/14/24 13:16 Height 5 ft 10 in Weight 205 lb BMI 29.4 BP 120/76 Blood Pressure Location Lt brachial Position Sitting Pulse 86 Pulse Source Pulse Oximeter Pulse Oximetry (%) 99 Oxygen Delivery Method Room Air Intake Visit Reasons: Annual PE Intake Note: Pt is here today for PE. Allergies tiotropium [Spiriva with HandiHaler] Allergy (Unknown, Verified 03/14/24 13:19) conjuctivits seasonal allergies Allergy (Unknown, Uncoded 03/14/24 13:19) Unknown Medication List - Last Reconciled 03/14/24 by Emelia Singer MD albuterol sulfate 90 mcg/actuation 1 puff inhalation DAILY PRN cetirizine (Zyrtec) 10 mg PO DAILY PRN cholecalciferol (vitamin D3) 50 mcg PO DAILY fluticasone furoate-vilanterol 100-25 mcg/dose 1 inh inhalation DAILY levothyroxine 137 mcg PO QAM multivitamin with iron PO DAILY rhubarb root extract (Estroven Complete Menopause Relief) mg PO Tobacco use date assessed: 03/14/24 Dental Screening Dental Screen Date: 03/14/24 Did you have a dental visit in the last 12 months?: Yes Did you have a dental problem in the last 6 months where you did not have access to dental care?: No Was dental information given to patient?: Patient has dentist HPI Annual PE HPI Details Pt presents for PE. PFSH Medical History (Updated 03/14/24 @ 13:43 by Emelia Singer MD) Graves' eye disease Fatigue Vitamin D deficiency Postablative hypothyroidism Normal Pap smear Annual physical exam Hypothyroidism Graves disease Asthma Surgical History (Updated 03/14/24 @ 13:52 by Emelia Singer MD) Hx of cholecystectomy History of eyelid surgery H/O wisdom tooth extraction H/O colonoscopy Family History Father Liver cancer Mother Dementia Social History Housing: House Alcohol intake: current Alcohol intake frequency: a few times a month Patient Tobacco Use Status: Never used Tobacco e-Cigarette/Vaping Use: Never Used service: No Current occupational status: employed Cognitive needs: No Hearing needs: No Vision needs: Yes Questionnaire PHQ-9 Over the last 2 weeks, how often have you been bothered by any of the following problems? 1. Little interest or pleasure in doing things: not at all 2. Feeling down, depressed, or hopeless: not at all 3. Trouble falling or staying asleep, or sleeping too much: not at all 4. Feeling tired or having little energy: not at all 5. Poor appetite or overeating: not at all 6. Feeling bad about yourself - or that you are a failure or have let yourself or your family down: not at all 7. Trouble concentrating on things, such as reading the newspaper or watching television: not at all 8. Moving or speaking so slowly that other people could have noticed. Or the opposite - being so fidgety or restless that you have been moving around a lot more than usual: not at all 9. Thoughts that you would be better off or of hurting yourself in some way: not at all Total score: 0 Depression Screening Interpretation: Negative Depression Screening Done: Yes 49265 - PHQ-9 Billing: Yes Source: Developed by Drs. Chris Chisholm, Katalina Mayo, Jeet Beltran and colleagues, with an educational danny from [employer]. Thrive Questionnaire Date Thrive assessed: 03/14/24 I am a: Patient What is your living situation today?: I have a steady place to live Within the past 12 months, did the food you bought not last and you didn't have the money to get more?: Never true Within the past 12 months, did you worry whether your food would run out before you got money to buy more?: Never true Do you have trouble paying for medicines?: No Do you have trouble getting transportation to medical appointments?: No Do you have trouble paying your heating and electricity bill?: No Do you have trouble taking care of your child, family member or friend?: No Do you have trouble with day-to-day activities such as bathing, preparing meals, shopping, managing finances, etc.?: No Are you currently unemployed and looking for a job?: No Are you interested in more education?: No Please select the resources that you would like help with: None Currently or been in a relationship where the following occur: No concerns reported THRIVE Score: 0 AUDIT C Alcohol Use Questionnaire (AUDIT-C) 1. How often do you have a drink containing alcohol?: Monthly or less 2. How many drinks containing alcohol do you have on a typical day when you are drinking?: 1 or 2 3. How often do you have six or more drinks on one occasion?: Never Total Score: 1 GILMA-7 AMB Questionnaire GILMA-7 Date GILMA - 7 assessed: 03/14/24 Feeling nervous, anxious, or on edge: 0 = Not at all Not being able to stop or control worryin = Not at all Worrying too much about different things: 0 = Not at all Trouble relaxin = Not at all Being so restless that it is hard to sit still: 0 = Not at all Becoming easily annoyed or irritable: 0 = Not at all Feeling afraid as if something awful might happen: 0 = Not at all Total GILMA-7 score (0-4 normal; 5-9 mild; 10-14 moderate; 15-21 severe): 0 Source: Developed by Drs. Chris Chisholm, Katalina Mayo, Jeet Beltran and colleagues, with an educational danny from [employer]. GILMA-7 Assessment Billing GILMA-7 Assessment Tool: GILMA-7 Assessment 89016 Review of Systems Const All systems reviewed & are unremarkable except as noted in HPI and below Eyes Reports no additional complaints ENT Reports no additional complaints Card Reports no additional complaints Resp Reports no additional complaints GI Reports no additional complaints Reports no additional complaints Physical exam (Primary Care) Vital Signs: Last Vital Signs Pulse 86 03/14/24 13:16 BP 120/76 03/14/24 13:16 Pulse Ox 99 03/14/24 13:16 Oxygen Delivery Method Room Air 03/14/24 13:16 BMI result Body Mass Index 29.4 Tobacco/Smoking Status: Tobacco use Status Tobacco use date assessed 03/14/24 03/14/24 13:24 Patient Tobacco Use Status Never used Tobacco 03/14/24 13:24 e-Cigarette/Vaping Use Never Used 03/14/24 13:24 PHQ-9: PHQ-9 Score PHQ-9: Total score 0 03/14/24 13:24 Depression Screening Interpretation: Negative Thrive Assessment: Date of Thrive Assessment Date Thrive assessed 03/14/24 03/14/24 13:24 Currently or been in a relationship where the following occur: No concerns reported Const General: no acute distress HENMT Head: Yes normal to inspection Ears: hearing grossly normal bilaterally Throat: Yes posterior oropharynx normal Eyes General: appearance normal, both eyes and all related structures Neck Neck: Yes no lymphadenopathy and Yes supple Resp Effort & Inspection: normal respiratory effort Auscultation: clear to auscultation bilaterally Cardio Rhythm: regular rhythm Heart sounds: S1 normal heart sound present and S2 normal heart sound present GI Inspection: Yes normal to inspection Palpation (GI): Soft to palpation Percussion: Yes normal to percussion Auscultation: normal bowel sounds Coding Level of Care Code Est Pt Prev Care 40-64y(54629) Diagnoses Normal Pap smear Z12.4 Asthma J45.909 Vitamin D deficiency E55.9 H/O colonoscopy Z98.890 Annual physical exam Z00.00 Additional Codes GILMA-7 Assessment Billing - GILMA-7 Assessment Tool: GILMA-7 Assessment 26836 ([id number]) PHQ-9 - 39828 - PHQ-9 Billing: Yes ([id number]) Assessment & Plan Assessment & Plan (1) Normal Pap smear: Comment: 2021, [employer], [facility] 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 Vazquez, controlled on Breo Code(s): J45.909 - Unspecified asthma, uncomplicated Category: Medical Plan: Continue Breo and albuterol p.r.n. (3) Vitamin D deficiency: Code(s): E55.9 - Vitamin D deficiency, unspecified Category: Medical Plan: Continue vitamin-D supplement (4) H/O colonoscopy: Comment: 02/2018-normal recommended 10 year follow-up Has no GI concerns Code(s): Z98.890 - Other specified postprocedural states Category: Surgical Plan: Up-to-date with colonoscopy (5) Annual physical exam: Code(s): Z00.00 - Encounter for general adult medical examination without abnormal findings Category: Medical Plan: Well-balanced diet regular physical activity discussed with the patient return for physical in 1 year Orders: Orders Lipid Panel 1 Year E55.9 - Vitamin D deficiency, unspecified, E89.0 - Postprocedural hypothyroidism, J45.909 - Unspecified asthma, uncomplicated, Z00.00 - Encounter for general adult medical examination without abnormal findings Vitamin D 25-OH Total 1 Year E55.9 - Vitamin D deficiency, unspecified, E89.0 - Postprocedural hypothyroidism, J45.909 - Unspecified asthma, uncomplicated, Z00.00 - Encounter for general adult medical examination without abnormal findings TSH reflex Free T4 1 Year E55.9 - Vitamin D deficiency, unspecified, E89.0 - Postprocedural hypothyroidism, J45.909 - Unspecified asthma, uncomplicated, Z00.00 - Encounter for general adult medical examination without abnormal findings Complete Blood Count Auto Diff 1 Year E55.9 - Vitamin D deficiency, unspecified, E89.0 - Postprocedural hypothyroidism, J45.909 - Unspecified asthma, uncomplicated, Z00.00 - Encounter for general adult medical examination without abnormal findings Comprehensive [place]. Panel Fast 1 Year E55.9 - Vitamin D deficiency, unspecified, E89.0 - Postprocedural hypothyroidism, J45.909 - Unspecified asthma, uncomplicated, Z00.00 - Encounter for general adult medical examination without abnormal findings Medications: Refilled levothyroxine 137 mcg PO QAM 90 tabs 3RF
== END 2024-03-14 13:51 | disposition home or self-care (01) ==
PROVIDERS: PCP Internal Medicine; Visit Provider Internal Medicine
DX: Z12.4 Encounter for screening for malignant neoplasm of cervix (principal); J45.909 Unspecified asthma, uncomplicated; E55.9 Vitamin D deficiency, unspecified; Z98.890 Other specified postprocedural states; Z00.00 Encounter for general adult medical examination without abnormal findings

== ENCOUNTER → 2024-03-14 12:36 | Outpatient (BNVA) | payer OTHER, SELFPAY | PROVIDERS: PCP Internal Medicine; Visit Provider Internal Medicine | DX: Z00.00 Encounter for general adult medical examination without abnormal findings (principal); J45.909 Unspecified asthma, uncomplicated; E55.9 Vitamin D deficiency, unspecified | CPT/HCPCS: 96127 ==

== ENCOUNTER 2025-03-03 08:39 | Outpatient (REF) | payer OTHER, SELFPAY ==
--- OUTSIDE RECORDS SUMMARY | 2025-03-03 08:58 | XMS_ITS | Patient Health Record ---
[facility] [place] Address [address] [place] [address] Care Team Providers Care Batch Attendant Name Role Phone Emelia Singer MD Primary Care Provider Walter Robertson Unavailable [phone] Allergies Allergen (clinical drug ingredient) Drug/Non Drug Allergy documented on EMR Reaction Allergy Type Onset Date Status ibuprofen Advil effects menstrua l cycle Drug Allergy Active Aleve effects menstrua l cycle Drug Allergy Active Motrin effects menstrua l cycle Drug Allergy Active Reason For Referral No Information Medications Medication SIG (Take, Route, Fr equency, Duration) Notes Start Date End Date Status Vitamin B12 1 tablet Orally Once a day; Duration: 30 day(s) Active Qvar 80 mcg 2 puffs Inhalation once daily Active Multivitamins as directed Orally Active Low-Ogestrel 1 tablet Orally once daily; Duration: 30 day(s) Active Iron 325 (65 Fe) MG 1 tablet Orally Once a day; Duration: 30 day(s) Active Problems Problem Type SNOMED Code ICD Code Onset Dates Problem Status W/U Status Risk Notes Problem Bursitis (55689951) Bursitis (727.3) Active confirmed Problem Metatarsalgia (86325880) Metatarsalgia (726.70) Active confirmed Problem Pain in limb (66757465) Pain in Limb (729.5) Active confirmed Problem Metatarsalgia (finding) (20558059) Plantarflexed Metatarsal (838.04) Active confirmed Plan Of Treatment Pending Test Test Name Order Date X ray : Foot, left 3V 01/17/2013 X ray : Foot, right 3V 01/17/2013 Insurance Providers Payer Name Payer Address Payer Phone Subscriber Number Group Number Insured Name Patient Relationship to Insured Coverage Start Date Coverage End Date [facility] [address] [facility] [place] [address] [phone] [id number] Small, Hilary Self - patient is the insured Medical (General) History Medical History History ICD Code anemia Surgical History Surgery Date(Month/Year) wisdom teeth extraction
--- OUTSIDE RECORDS SUMMARY | 2025-03-03 08:58 | XMS_ITS | Clinical Summary ---
Author Organization [facility] Address [address] [place] [address] Phone Care Team Providers Care Flight Purser Name Role Phone Emelia Singer MD Primary Care Provider [phone] Allergies Active Allergy Reactions Criticality Noted Date Comments Tiotropium 09/19/2024 Medications albuterol HFA (PROAIR HFA ; PROVENTIL HFA ; VENTOLIN HFA) 90 mcg/actuation inhaler Inhale 2 puffs by mouth 3 (three) times a day. 09/17/2024 Active cholecalciferol (VITAMIN D-3) 50 mcg (2,000 unit) capsule Take 1 capsule (2,000 Units total) by mouth 1 (one) time each day. 08/20/2024 Active Breo Ellipta 100-25 mcg/dose inhaler Inhale 1 puff by mouth 1 (one) time each day. 08/28/2024 Active levothyroxine (SYNTHROID, LEVOTHROID) 137 mcg tablet Take 1 tablet (137 mcg total) by mouth 1 (one) time each day in the morning. 08/10/2024 Active cetirizine (ZyrTEC) 10 mg tablet Take 1 tablet (10 mg total) by mouth 1 (one) time each day. Active fluticasone furoate-vilante roL (BREO ELLIPTA) 100-25 mcg/dose inhaler Inhale 1 puff by mouth 1 (one) time each day. 3 each 11 12/25/2024 6 Active Active Problems Problem Noted Date Diagnosed Date Class 1 obesity 09/19/2024 Asthma 09/19/2024 GERD (gastroesophageal reflux disease) 5 Allergic rhinitis 09/19/2024 Encounters Date Type Department Care Team Description 12/25/2024 11:00 AM EDT Office Visit Pulmonology [facility] [address] [place] [address] Korina Vazquez MD Moderate asthma, unspecified whether complicated, unspecified whether persistent (Primary Dx); Overweight (BMI 25.0-29.9); Seasonal allergic rhinitis due to pollen from Last 3 Months Medical History Medical History Date Comments GERD (gastroesophageal reflux disease) 09/19/2024 Family History Medical History Relation Name Comments Blindness Neg Hx Cataracts Neg Hx Glaucoma Neg Hx Macular degeneration Neg Hx Strabismus Neg Hx Social History Tobacco Use Types Packs/Day Years Used Date Smoking Tobacco: Never Tobacco Cessation:Counseling Given: Not Answered Comments Unknown Sex and Gender Information Value Date Recorded Sex Assigned at Not on file Legal Sex Female 6:47 AM EST Gender Identity Not on file Sexual Orientation Not on file Last Filed Vital Signs Vital Sign Reading Time Taken Comments Blood Pressure 116/67 12/25/2024 10:58 AM EDT Pulse 77 12/25/2024 10:58 AM EDT Temperature 36.1 C (97 F) 12/25/2024 10:58 AM EDT Respiratory Rate 20 12/25/2024 10:58 AM EDT Oxygen Saturation 98% 12/25/2024 10:58 AM EDT Inhaled Oxygen Concentration - - Weight 93 kg (205 lb) 12/25/2024 10:58 AM EDT Height 180.3 cm (5' 11 ) 12/25/2024 10:58 AM EDT Body Mass Index 28.59 12/25/2024 10:58 AM EDT Plan of Treatment Upcoming Encounters Date Type Department Care Team (Late st Contact Info) Description 04/30/2025 11:00 AM EST Office Visit Pulmonology [facility] [address] [place] [id number] Korina Vazquez MD [address] [place] [phone] Health Maintenance Due Date Last Done Comments Breast Cancer Screening 1969 Colorectal Cancer Screening: Colonoscopy 1969 Hepatitis B Vaccines (1 of 3 - 19+ 3-dose series) 1988 Cervical Cancer Screening: Pap Smear 1990 Pneumococcal Vaccine: 50+ Years (2 of 2 - PPSV23, PCV20, or PCV21) 08/10/2016 06/15/2016 RSV Immunization Adult Patients (1 - Risk 50-74 years 1-dose series) 2019 Zoster Vaccines (1 of 2) 2019 Depression Screening 03/13/2024 HIV Screening 04/10/2024 Hepatitis C Screening 04/10/2024 Social Influencers of Health Screening 04/10/2024 COVID-19 Vaccine ( - season) 2024 08/01/2021, 04/03/2021, 08/19/2020, Additional history exists Influenza Vaccine (#1) 2024 03/11/2021, 2016 DTaP,Tdap,and Td Vaccines (2 - Td or Tdap) 09/21/2026 09/21/2016 HIB Vaccines Aged Out No longer eligi ble based on patient's age to complete this topic HPV Vaccines Aged Out No longer eligi ble based on patient's age to complete this topic Hepatitis A Vaccines Aged Out No long er eligible based on patient's age to complete this topic IPV Vaccines Aged Out No longer eligi ble based on patient's age to complete this topic MMR Vaccines Aged Out No longer eligi ble based on patient's age to complete this topic Meningococcal ACWY Vaccine Aged Out N o longer eligible based on patient's age to complete this topic Meningococcal B Vaccine Aged Out No l onger eligible based on patient's age to complete this topic RSV Immunization Patients Under 20 months Aged Out No longer eligible based on patient's age to complete this topic Varicella Vaccines Aged Out No longer eligible based on patient's age to complete this topic Insurance [facility] Care Teams Flight Purser Relationship Specialty Start Date End Date Emelia Singer MD [address] [place] [address] PCP - General Internal Medicine 02/03/25
--- OUTSIDE RECORDS SUMMARY | 2025-03-03 08:58 | XMS_ITS | Patient Health Record ---
Author Organization [facility] Address [address] [place] [phone] Care Team Providers Care Pulmonology Technician Name Role Phone Emelia Singer MD Primary Care Provider Chris Nielson Unavailable [phone] Allergies Allergen (clinical drug ingredient) Drug/Non Drug Allergy documented on EMR Reaction Allergy Type Onset Date Status Hay fever (uncoded) Unknown Allergy Active tiotropium Spiriva HandiHaler Unknown Drug Allergy Active Reason For Referral No Information Medications Medication SIG (Take, Route, Frequency, Duration) Notes Start Date End Date Status Multivitamin Adult A ctive Vitamin B12 Tablet 1 tablet Orally Once a day Active Ventolin HFA Active iron Active Ogestrel 0.5-50 MG-MCG Tablet 1 tablet Orally Once a day Active Social History Tobacco Use: Social History Observation Description Date Details (start date - stop date) Never Smoker NA - NA Social History Drugs/Alcohol: Social Info Question Answer Notes Alcohol Screen Did you have a drink containing alcohol in the past year? Yes How often did you have a drink containing alcohol in the past year? Monthly or less (1 point) How many drinks did you have on a typical day when you were drinking in the past year? 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[employer] Section Notes: Nonsmoker; no sig alcohol Problems Problem Type SNOMED Code ICD Code Onset Dates Problem Status W/U Status Risk Notes Problem Iron deficiency anemia due to chronic blood loss (182649377) Iron deficiency anemia due to chronic blood loss (D50.0) Active confirmed Problem Iron deficiency anemia (04809967) Iron deficiency anemia, unspecified iron deficiency anemia type (D50.9) Active confirmed Plan Of Treatment Future Test Test Name Order Date COLONOSCOPY 12/06/2017 Insurance Providers Payer Name Payer Address Payer Phone Subscriber Number Group Number Insured Name Patient Relationship to Insured Coverage Start Date Coverage End Date [facility] [address] [place] [phone] [id number] SMALL, FABBY Self - patient is the insured Medical (General) History Medical History History ICD Code Mild emphysema Denies VT,DM,CVA,renal disease Anemia--low Iron--longstanding due to he luis menses Surgical History Surgery Date(Month/Year) [place] teeth extraction
[2025-03-03 09:59] LABS: MANUAL DIFF FLAG NO
[2025-03-03 10:18] LABS: Hematocrit 39.1 % (37.0-47.0); Hemoglobin 12.3 g/dl (12.0-16.0); Imm Gran Abs Auto 0.01 X10*3/uL (0.00-0.03); Imm Gran Pct Auto 0.1 % (0.0-0.4); Lymphocytes Absolute Auto 2.3 X10*3/uL (1.2-4.9); Mean Corpuscular HGB Conc 31.5 g/dl (31.0-35.0); Mean Corpuscular Hemoglobin 28.1 pg (27.0-33.0); Mean Corpuscular Volume 89.5 fL (80.0-98.0); NRBC Abs Auto 0.000 X10*3/uL (0.0-0.012); NRBC Pct Auto 0.0 /100WBC (0.0-0.2); Platelet Count 319 X10*3/uL (160-400); Red Blood Count 4.37 X10*6/uL (4.20-5.50); White Blood Count 7.7 X10*3/uL (4.8-10.8)
[2025-03-03 10:53] LABS: Alanine Aminotransferase 21 U/L (0-31); Albumin Level 4.5 g/dL (3.5-5.0); Alkaline Phosphatase 89 U/L (39-117); Anion Gap 10 (12-20); Aspartate Amino Transferase 27 U/L (5-31); Blood Urea Nitrogen 13 mg/dL (9-16); Calcium 9.4 mg/dL (8.4-10.2); Carbon Dioxide 29 mmol/L (22-29); Chloride 110 mmol/L (96-108); Cholesterol 154 mg/dL (<200); Estimated Glomerular Filt Rate > 60; HDL Cholesterol 52 mg/dL (>40); Potassium 3.8 mmol/L (3.3-5.1); Sodium 145 mmol/L (135-145); Total Protein 7.8 g/dL (6.5-8.0); Triglycerides 64 mg/dL (<150)
== END 2025-03-03 08:40 | disposition home or self-care (01) ==
LOC: HO.HMGCLDS 08:39
PROVIDERS: PCP Internal Medicine; Visit Provider Internal Medicine
DX: Z00.00 Encounter for general adult medical examination without abnormal findings (principal); E55.9 Vitamin D deficiency, unspecified; E89.0 Postprocedural hypothyroidism; J45.909 Unspecified asthma, uncomplicated
CPT/HCPCS: 36415; 80053; 80061; 82306; 84443; 85025